=== PATIENT | female | born 1965 | race Caucasian/White ===

== ENCOUNTER 2022-01-20 14:58 | Emergency (ER) | payer OTHER ==
[~2022-01-20] VITALS: Ht 162 cm; Wt 141.0 kg
[~2022-01-20 14:58] MED LIST: CYCL10TA9 PO; HYDR-3583 PO
[2022-01-20] MEDS ORDERED: NS IV 1000 ML 1,000 ML IV SCH (16:00)
[2022-01-20 16:36] LABS: POTASSIUM 3.7 MMOL/L (3.6-5.0)
[2022-01-20 16:37] LABS: CALCIUM 9.5 MG/DL (8.5-10.1)
[2022-01-20 16:42] LABS: CREATININE SERUM 1.11 MG/DL (0.60-1.30)
--- NOTE | 2022-01-20 16:54 | ED General ---
General Chief Complaint: Abdominal/GI Problems Stated Complaint: CHILLS/NAUSEA/SHAKEY/VOMITING Nursing Triage Note: WAS SEEN AT [facility] ON 01/14 FOR A WOUND ON HER LEFT LEG. WAS PLACED ON BACTRIM AND GIVEN A FLU SHOT. STATES SINCE THEN SHE HAS HAD N/V/D AND NOT FEELING WELL Source of Information: Patient Exam Limitations: No Limitations History of Present Illness Date Seen by Provider: Jan 20, 2022 Time Seen by Provider: 16:51 Initial Comments Patient is a 56-year-old female history of diabetes who presents to the emergency room with a chief complaint of generalized malaise, fatigue, nausea and diarrhea. She has had some vomiting and some intermittently productive cough. Chills. She had COVID in April and believes that she may have COVID again. She was seen a week ago for a "sore" on the inside of her left calf. She was placed on Bactrim and some mupirocin ointment. She states shortly after starting the Bactrim her symptoms started. She is wondering if she may not be allergic to the Bactrim. She is also complaining of a mild headache with her nausea. Nothing makes it any better or any worse. She has not been taking anything at home for the symptoms. She does not smoke. No allergies to medications. All other review of systems reviewed and negative except as stated Timing/Duration: 1 Week Severity: Moderate Associated Systoms: Malaise, Nausea/Vomiting, Weakness Allergies and Home Medications Allergies Coded Allergies: NKANo Known Allergies (Unverified Allergy, Mild, 03/19/09) Sulfa (Sulfonamide Antibiotics) (Verified Adverse Reaction, Unknown, N/V HEADACHE, 01/20/22) Patient Home Medication List Home Medication List Reviewed: Yes Discontinued Medications Cyclobenzaprine Hcl (Cyclobenzaprine Hcl) 10 Mg Tablet, 1 EACH PO TID PRN Discontinued Reason: No Longer Taking Prescribed by: GRANT HILL MD on 03/19/092106 Last Action: Discontinued Hydrocodone Bit/Acetaminophen (Lortab 5 Mg) 1 Tab Tab, 1 EA PO Q 4 - 6 HR PRN Discontinued Reason: No Longer Taking Prescribed by: GRANT HILL MD on 03/19/092106 Last Action: Discontinued Review of Systems Review of Systems Constitutional: see HPI, fever, malaise EENTM: no symptoms reported Respiratory: cough, short of breath Cardiovascular: no symptoms reported Gastrointestinal: diarrhea, nausea, vomiting Genitourinary: no symptoms reported : No Musculoskeletal: muscle cramps (Body aches) Skin: other (Multiple skin lesions to the anterior abdominal wall and 1 on her left leg) All Other Systems Reviewed Negative Unless Noted: Yes Past Yqsfipe-Nftjkc-Lvkuuj Hx Patient Social History Tobacco Use?: No Substance use?: No Alcohol Frequency: Rarely Immunizations Up To Date 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 oz. kg; 53.00 BMI Method: General Appearance: No Apparent Distress, WD/WN, Obese Eyes: Bilateral Eye Normal Inspection Neck: Normal Inspection Respiratory: Lungs Clear, Normal Breath Sounds, No Accessory Muscle Use, No Respiratory Distress Cardiovascular: Regular Rate, Rhythm Extremity: Normal Capillary Refill, Normal Inspection, Normal Range of Motion, Non Tender, No Calf Tenderness Neurologic/Psychiatric: Alert, Oriented x3, No Motor/Sensory Deficits, Normal Mood/Affect Skin: Normal Color, Warm/Dry, Other (Scattered healing wounds to the anterior abdominal wall none of which appear cellulitic. She has a 1-1/2 cm lesion to the medial aspect of the left calf, minimal surrounding erythema. No fluctuance. No streaking.) Progress/Results/Core Measures Suspected Sepsis SIRS Temperature: Pulse: 95 Respiratory Rate: 16 Blood Pressure 165 /85 Mean: 111 Laboratory Tests 01/20/22 16:08: Creatinine 1.11 Results/Orders Lab Results Laboratory Tests Test 01/20/22 16:08 01/20/22 16:57 Range/Units Sodium Level 134 L 135-145 MMOL/L Potassium Level 3.7 3.6-5.0 MMOL/L Chloride Level 99 98-107 MMOL/L Carbon Dioxide Level 22 21-32 MMOL/L Anion Gap 13 5-14 MMOL/L Blood Urea Nitrogen 22 H 7-18 MG/DL Creatinine 1.11 0.60-1.30 MG/DL Estimat Glomerular Filtration Rate 59 BUN/Creatinine Ratio 20 Glucose Level 243 H 70-105 MG/DL Calcium Level 9.5 8.5-10.1 MG/DL Influenza Type A (RT-PCR) Not Detected Not Detecte Influenza Type B (RT-PCR) Not Detected Not Detecte SARS-CoV-2 RNA (RT-PCR) Not Detected Not Detecte Urine Color YELLOW Urine Clarity SL CLOUDY Urine pH 5.5 5-9 Urine Specific Joy >=1.030 1.016-1.022 Urine Protein 2+ H NEGATIVE Urine Glucose (UA) 2+ H NEGATIVE Urine Ketones NEGATIVE NEGATIVE Urine Nitrite NEGATIVE NEGATIVE Urine Bilirubin NEGATIVE NEGATIVE Urine Urobilinogen 0.2 < = 1.0 MG/DL Urine Leukocyte Esterase NEGATIVE NEGATIVE Urine RBC (Auto) TRACE-I H NEGATIVE Urine RBC NONE /HPF Urine WBC 2-5 /HPF Urine Squamous Epithelial Cells 5-10 /HPF Urine Crystals NONE /LPF Urine Bacteria MODERATE H /HPF Urine Casts PRESENT /LPF Urine Granular Casts 5-10 H /LPF Urine Mucus LARGE H /LPF Urine Yeast FEW H /HPF Urine Culture Indicated YES My Orders Orders - LISSETH HIDALOG MD Ua Culture If Indicated (01/20/22 15:47) Covid 19 Inhouse Test (01/20/22 15:47) Influenza A And B By Pcr (01/20/22 15:47) Basic Metabolic Panel (01/20/22 15:56) Ed Iv/Invasive Line Start (01/20/22 15:56) Ns Iv 1000 Ml (Sodium Chloride 0.9%) (01/20/22 16:00) Ketorolac Injection (Toradol Injection) (01/20/22 17:00) Ondansetron Injection (Zofran Injectio (01/20/22 17:00) Urine Culture (01/20/22 16:57) Medications Given in ED Current Medications Medications Dose Ordered Sig/Héctor Route Start Time Stop Time Status Last Admin Dose Admin Ketorolac Tromethamine 30 mg ONCE ONCE IVP 01/20/22 17:00 01/20/22 17:01 DC 01/20/22 17:13 30 MG Ondansetron HCl 4 mg ONCE ONCE IVP 01/20/22 17:00 01/20/22 17:01 DC 01/20/22 17:13 4 MG Vital Signs/I&O 01/20/22 15:25 Temp 38.0 Pulse 95 Resp 16 B/P (MAP) 165/85 (111) Pulse Ox 97 O2 Delivery Room Air Capillary Refill : Less Than 3 Seconds Blood Pressure Mean: 111 Progress Note #1: Time: 16:53 Progress Note Discussed plan of care with the patient, recommend stopping the Bactrim. We will send her home with some nausea medications. Serum chemistry has been reviewed. Progress Note #2: Time: 18:01 Progress Note No evidence of urinary tract infection on urinalysis, COVID flu are negative. Patient is asking for a work note tonight. We will send a prescription for Zofran to her pharmacy. She was slightly hyperglycemic, she remembered that she did not take her Jardiance last night because she was vomiting. No clinical or objective findings to warrant further studies from the emergency department. Vital signs are all stable. No concerns for pneumonia, sepsis. Departure Impression Primary Impression: Viral syndrome Additional Impression: Dehydration Disposition: 01 HOME, SELF-CARE Condition: Stable Departure-Patient Inst. Decision time for Depature: 18:02 Referrals: [facility] (PCP/Family) Primary Care Physician Patient Instructions: VIRAL SYNDROME Add. Discharge Instructions: Drink lots of fluids to stay well-hydrated. Take the Zofran, 4 mg every 8 hours as needed for nausea and vomiting. [id number]-[id number] ibuprofen, 3 tablets which is 600 mg every 8 hours as needed for aches and pains. If you develop any worsening symptoms with vomiting, abdominal pain or high fever please come back to the emergency room for reevaluation. Scripts Ondansetron (Ondansetron Odt) 4 Mg Tab.rapdis 4 MG SL Q8H PRN for NAUSEA/VOMITING, #12 TAB Prov: LISSETH HIDALGO MD 01/20/22 Work/School Note: Work Release Form Date Seen in the Emergency Department: Jan 20, 2022 Return to Work: Jan 21, 2022 Copy Copies To 1: SABAS VASQUEZ KATHRYN M MD Jan 20, 2022 16:54
[2022-01-20] MEDS ORDERED: ONDANSETRON 4 MG/2 ML (SDV) Z0FRAN IVP ONE (17:00)
[2022-01-20] MEDS ORDERED: KETOROLAC 30 MG/ML VIAL IVP ONE (17:00)
[2022-01-20 17:02] LABS: BILIRUBIN,URINE NEGATIVE (NEGATIVE); CLARITY,URINE SL CLOUDY; COLOR,URINE YELLOW; GLUCOSE, URINE (UA) 2+ (NEGATIVE); KETONES,URINE NEGATIVE (NEGATIVE); LEUKOCYTE ESTERASE ,URINE NEGATIVE (NEGATIVE); NITRITE,URINE NEGATIVE (NEGATIVE); PH,URINE 5.5 (5-9); PROTEIN,URINE 2+ (NEGATIVE)
[2022-01-20 17:26] LABS: BACTERIA,URINE MODERATE /HPF
[2022-01-20 17:27] LABS: YEAST,URINE FEW /HPF
[2022-01-20] MEDS ORDERED: ONDA4TAB11 SL (18:03)
[2022-01-20 18:12] VITALS: BP 135/89
== END 2022-01-20 18:12 | disposition home or self-care (01) ==
LOC: EDUNIT# 14:58 → ER 15:04
DX: B34.9 Viral infection, unspecified (principal); E86.0 Dehydration; Z86.16 Personal history of COVID-19; Z20.822 Contact with and (suspected) exposure to COVID-19
CPT/HCPCS: 36415; 80048; 81000; 87088; 87636; 99283